=== PATIENT | male | born 1960 | race Caucasian/White ===

== ENCOUNTER → 2016-12-03 | Outpatient (CLI) | payer MEDICAID ==
[~2016-12-03] MED LIST: AMLODIPINE10 M2 PO; ASPIRIN ADULT L81 M2 PO; GABAPENTIN800 MG PO; LISINOPRIL40 MG PO; PERCOCET 325 MG1 TA3 PO; RITALIN 5MG TABL5 MG PO; VALIUM 5MG TABLE5 MG PO
[2016-12-03 15:03] LABS: AMPHETAMINES/METAMPHETAMINES NEGATIVE ng/mL (<1000)
== END ==
LOC: LAB 14:01
PROVIDERS: Emergency Medicine
DX: Z79.899 Other long term (current) drug therapy (principal)